=== PATIENT | male | born 1980 | race Hispanic/Latino ===

== ENCOUNTER 2016-08-24 13:05 | Emergency (ER) | payer BC ==
[2016-08-24 13:06] VITALS: BMI 25.8
[2016-08-24 13:23] VITALS: BP 127/74; PULSE 90; RESP 16; TEMP 98; O2SAT 100
--- NOTE | 2016-08-24 13:44 | ED PDOC ---
Lower Extremity Pain/Injury Time Seen by Provider: 08/24/16 13:42 Chief Complaint (Nursing): Lower Extremity Problem/Injury Chief Complaint (Provider): ankle fx History Per: Patient (36 y/o male h/o tib-fib fx 2 months prior here for xry evaluation of injury. States pain is controlled in boot. Was seen in Dr. Stack office today but unable to obtain xry evaluation due to equipment malfunction at that time. SEnt to ED for xry.) Past Medical History Reviewed: Historical Data, Nursing Documentation, Vital Signs Vital Signs: Last Vital Signs Temp 98.0 F 08/24/16 13:18 Pulse 90 08/24/16 13:18 Resp 16 08/24/16 13:18 BP 127/74 08/24/16 13:18 Pulse Ox 100 08/24/16 13:18 - Surgical History Surgical History: No Surg Hx - Family History Family History: States: No Known Family Hx - Home Medications Home Medications: Ambulatory Orders Medication Instructions Recorded Ibuprofen [Motrin Tab] 600 mg PO Q6 PRN #15 tab 06/25/16 oxyCODONE/Acetaminophen [Percocet 1 ea PO Q6 PRN #10 tab 06/25/16 5/325 mg Tab] - Allergies Allergies/Adverse Reactions: Allergies Allergy/AdvReac Type Severity Reaction Status Date / Time No Known Allergies Allergy Verified 08/24/16 13:17 Review of Systems ROS Statement: Except As Marked, All Systems Reviewed And Found Negative Musculoskeletal: Positive for: Leg Pain Physical Exam - Reviewed Nursing Documentation Reviewed: Yes Vital Signs Reviewed: Yes - Physical Exam Appears: Positive for: Well, Non-toxic, No Acute Distress Head Exam: Positive for: ATRAUMATIC, NORMAL INSPECTION, NORMOCEPHALIC Skin: Positive for: Normal Color, Warm, DRY Eye Exam: Positive for: EOMI, Normal appearance, PERRL ENT: Positive for: Normal ENT Inspection Neck: Positive for: Normal, Painless ROM Cardiovascular/Chest: Positive for: Regular Rate, Rhythm Respiratory: Positive for: CNT, Normal Breath Sounds Gastrointestinal/Abdominal: Positive for: Normal Exam, Bowel Sounds, Soft Back: Positive for: Normal Inspection Extremity: Positive for: Normal ROM, Other (Foot in boot.) Neurologic/Psych: Positive for: Alert, Oriented - ECG O2 Sat by Pulse Oximetry: 100 - Progress ED Course And Treament: ankle/foot xry: persistent fx fibula patient seen by podiatry resident. CT of ankle ordered. patient dc home with f/u with podiatry. Disposition - Clinical Impression Clinical Impression: Ankle injury - Patient ED Disposition Is Patient to be Admitted: No - Disposition Referrals: Boris Stack DPM [Staff Provider] - Disposition: Routine/Home Disposition Time: 17:02 Condition: FAIR Instructions: Ankle Fracture (ED)
--- NOTE | 2016-08-24 15:18 | RAD ---
PROCEDURE: Left tibia and fibula HISTORY: h/o fx COMPARISON: 06/25/2016. TECHNIQUE: Standard protocol for this study/examination. FINDINGS: Incompletely visualize distal fibular fracture. Major fracture fragments are anatomically aligned. IMPRESSION: No acute findings related to/accounting for the clinical presentation.
--- NOTE | 2016-08-24 15:24 | RAD ---
PROCEDURE: Left Ankle Radiographs. HISTORY: ankle injury COMPARISON: 06/25/2016 FINDINGS: BONES: Spiral fracture distal fibula again identified. No definite callus. No clear tibial fracture identified. Medial malleolus appears intact. JOINTS: Normal. No osteoarthritis. Ankle mortise maintained. Talar dome intact SOFT TISSUES: Normal. OTHER FINDINGS: None. IMPRESSION: Spiral fracture distal fibula, nondisplaced. No definite callus. No other significant abnormality is identified.
--- NOTE | 2016-08-24 15:53 | CP.PCM.CON ---
History of Present Illness - History of Present Illness History of Present Illness: 36 year old male was seen in ED regarding evaluation of left ankle fracture. Patient states that today he saw Dr. Stack in office and was sent to the hospital to get xrays due to an equipment malfunction. Patient states that his leg has been casted for 6 weeks, and he has been wearing a CAM boot for the last 2 weeks. He denies any pain to his left ankle. Denies n/v/f/c/sob/cp. Past Patient History - Past Social History Smoking Status: Never Smoked - PSYCHIATRIC Hx Substance Use: No - SURGICAL HISTORY Hx Surgeries: No - ANESTHESIA Hx Anesthesia: No Meds Allergies/Adverse Reactions: Allergies Allergy/AdvReac Type Severity Reaction Status Date / Time No Known Allergies Allergy Verified 08/24/16 13:17 Physical Exam - Constitutional Appears: Well, Non-toxic, No Acute Distress - Extremities Exam Additional comments: Left Lower Extremity focused exam: Vasc- DP and PT pulses palpable, TG runs warm to cool, capillary refill <3 sec to digits x 5, no edema noted to left ankle Derm- No open wounds, no ecchymosis, nails 1-5 are WNL for thickness and length Neuro- Gross sensation intact Ortho- No tenderness on palpation to ankle,pedal muscle strength 5/5 in all direction - Neurological Exam Neurological exam: Alert, Oriented x3 - Psychiatric Exam Psychiatric exam: Normal Affect, Normal Mood Results - Vital Signs Recent Vital Signs: Last Vital Signs Temp 98.0 F 08/24/16 13:18 Pulse 90 08/24/16 13:18 Resp 16 08/24/16 13:18 BP 127/74 08/24/16 13:18 Pulse Ox 100 08/24/16 13:44 Assessment & Plan - Assessment and Plan (Free Text) Assessment: 36 year old male 2 months post left ankle fracture secondary to fall Plan: Patient examined and evaluated Chart and vitals reviewed Discussed in detail with attending, Dr. Stack Radiographs reviewed, IMPRESSIONS: spiral fx distal fibular, non-displaced, no definite callus, no other significant abnormality is identified CT ordered Patient to follow up with Dr. Stack in office
--- NOTE | 2016-08-24 17:11 | CT ---
PROCEDURE: CT left ankle HISTORY: EVALUATE FOR ANKLE INJURY COMPARISON: 06/25/2016 TECHNIQUE: 2.5 mm contiguous axial sections were acquired through the left ankle. Sagittal and coronal images were reformatted from the axial scan. FINDINGS: The previously identified spiral fracture of the distal fibula is again identified. It is nondisplaced. There is no callus seen about the fracture. It is mildly comminuted. A posterior malleolar fracture is again identified, nondisplaced. There is osteopenia seen throughout the posterior fragment of this fracture. There is no callus seen about the fracture. There is possible oblique nondisplaced fracture of the lateral talus, best demonstrated on series 602, image 63, with a small step-off. This is not clearly evident on prior examination. It is not certain that this represents a true fracture. If there is clinical concern then evaluation with magnetic resonance imaging would be useful to evaluate the possibility of this fracture. There is no other fracture identified. There is mild medial soft tissue swelling noted. IMPRESSION: Spiral fracture distal fibula, comminuted and nondisplaced. No evidence of callus. Nondisplaced posterior malleolar fracture. Osteopenia is not seen throughout the posterior fragment. There is no callus seen about this fracture. Possible oblique nondisplaced fracture of the lateral talus. This is evident on the coronal reformatted images as described above. Consider additional evaluation with magnetic resonance imaging if clinically warranted.
== END 2016-08-24 17:02 | disposition home or self-care (01) ==
LOC: H.ER 13:05
DX: Z47.89 Encounter for other orthopedic aftercare (principal)